=== PATIENT | male | born 1955 | race Hispanic/Latino ===

== ENCOUNTER 2017-04-30 07:07 | Emergency (ER) | payer SELFPAY ==
[2017-04-30 07:17] VITALS: BP 130/87
--- NOTE | 2017-04-30 08:21 | ERNOTE ---
Integumentary HPI - Narrative Date of Service: 04/30/17 - General Presenting Symptoms: rash Time Seen by Provider: 04/30/17 08:21 Source: patient Exam Limitations: no limitations - Immun/Allergies/Home Medications Immunizations: IMMUNIZATION HX History of Influenza Vaccine More Information Required Allergies/Adverse Reactions: Allergies Allergy/AdvReac Type Severity Reaction Status Date / Time No Known Allergies Allergy Verified 04/30/17 07:17 Home Medications: HOME MEDICATIONS Prednisone 50 mg PO DAILY #5 tablet 04/30/17 [Last Taken Unknown] diphenhydrAMINE HCL [Benadryl] 25 mg PO Q6H PRN #30 cap 04/30/17 [Last Taken Unknown] - History of Present Illness Narrative: Patient presents for an itchy rash since Saturday. he relates that Saturday he was working in the weeds clearing brush. He was in shorts and short sleeves. The next day he was itching on his exposed skin. This seems to be related to clearing the weeds. He did not notice any poison jd. Itchy. Areas on arms/ legs, none on covered skin. No fever. No trouble breathing or swallowing. No oral lesions.Has not seen anyone else for this. Used topical OTC meds. Location: Reports: other - exposed skin Quality: Reports: itching Severity: moderate Exposure: Reports: other - weeds Modifying Factors - (Improves): Reports: calamine lotion Modifying Factors - (Worsens): Reports: nothing Prior Treatment: Denies: recently seen Review of Systems - Review of Systems Constitutional: Absent: fever EYE: Absent: eye discharge, vision changes ENT: Absent: sore throat, throat swelling Respiratory: Absent: shortness of breath Cardiology: Absent: chest pain Gastrointestinal/Abdominal: Absent: abdominal pain Neurological: Absent: weakness - Patient's Past Medical History Patient History - Medical: No pertinent hx Patient History - Cardiac/Respiratory: No pertinent hx Patient History - Cancer: No Hx of Cancer Patient History - Surgical Procedures: No surgical history Patient History - Other: None - Social History Living Situations: home Abuse History: No History of abuse Psych History: No pertinent hx Alcohol Use: occasionally Drug Use: marijuana - Immunizations History of Influenza Vaccine: More Information Required to Determine Physical Exam - Physical Exam General Appearance: Present: alert, no apparent distress, other - non-toxic, well hydrated, no distress. Head Exam: Present: normal inspection, no evidence of injury Eye Exam: Normal inspection: bilateral, PERRL: bilateral Ears, Nose, Throat: Present: normal ENT inspection, other - no intra oral lesions. No swelling of lips, tongue, or posterior oropharyngeal structures. Neck: Present: normal inspection Respiratory: Present: no respiratory distress, normal breath sounds, no accessory muscle use, lungs clear Cardiovascular/Chest: Present: regular rate, rhythm, normal peripheral pulses Gastrointestinal/Abdominal: Present: normal bowel sounds, nondistended, soft Back Exam: Present: normal inspection Extremity Exam: Present: normal range of motion, no edema Neurological Exam: Present: alert, normal mood/affect, no motor/sensory deficits Skin Exam: Present: normal color, warm/dry, other - There are scattered linear vesicles arms and legs that are consistent with contact dermatitis. No EM, SJS , or TEN. No seconday complications noted. ED Progress - Vital Signs Patient's Vital Signs:: I have reviewed the patient's vital signs. Vital Signs: Vital Signs 04/30/17 07:14 Temperature 36.2 C L Pulse Rate 70 Respiratory 12 Rate Blood Pressure 130/87 O2 Sat by Pulse 99 Oximetry - Progress/Reassessment Chief Complaint: Rash Progress Note-Subjective: 04/30/17 08:16 Exam and Hx C/W Contact dermatitis. No TEN, SJS or EM. No secondary infection. / Departure Clinical Impression: Contact dermatitis - Departure Disposition: Home self-care Condition: Stable Instructions: Contact Dermatitis Additional Instructions: Use medications as directed. Return for trouble breathing or swallowing, fever , worsening rash or if your condition worsens or changes in any way. Prescriptions: diphenhydrAMINE HCL [Benadryl] 25 mg PO Q6H PRN #30 cap PRN Reason: Itching Prednisone 50 mg PO DAILY #5 tablet
== END 2017-04-30 08:25 | disposition home or self-care (01) ==
LOC: ER 07:07
DX: L25.9 Unspecified contact dermatitis, unspecified cause (principal)